=== PATIENT | female | born 1995 | race Caucasian/White ===

== ENCOUNTER 2019-08-27 19:02 | Emergency (ER) | payer BC, SELFPAY ==
[2019-08-27 19:05] VITALS: BP 115/69; PULSE 114; RESP 16; TEMP 38.6; O2SAT 99
--- NOTE | 2019-08-27 19:42 | W.ED.GENAD ---
Discharge Plan Disposition Patient Disposition: HOME Condition: Stable Discharge Details Chief Complaint: Fever Clinical Impression: Influenza Primary Care Provider: Hien,Local ED Provider: Amee Mack Home Meds and New Rx's Prescriptions: New oseltamivir [Tamiflu] 75 mg capsule 75 mg PO BID 5 Days Qty: 10 RF: 0 No Action multivitamin Tablet 1 tab PO DAILY RF: 0 calcium carbonate [Calcium 500] 500 mg calcium (1,250 mg) Tablet 500 mg PO DAILY RF: 0 cholecalciferol (vitamin D3) [Vitamin D3] 10 mcg (400 unit) Capsule PO DAILY RF: 0 ferrous sulfate [iron] 325 mg (65 mg iron) Tablet PO DAILY RF: 0 vitamin [id number]-[id number] acid 500-400 mcg Tablet 1 tab PO DAILY RF: 0 biotin 10,000 mcg Capsule 10,000 mcg PO DAILY RF: 0 Discharge Instructions Instructions: Influenza (ED) Additional Instructions: Drink plenty of fluids. Rest activities as tolerated. Use Tamiflu as prescribed as discussed. Continue your previously prescribed antibiotics. Be sure to replace your toothbrushes as well as lip cosmetics and Chapstick Use Motrin or Tylenol for fever control. Observe for any signs of difficulty breathing or dehydration as discussed. Recheck with your primary care doctor if not improving in the next 5 to 7 days. Return or go to your local emergency room for any worsening, concerns or alarming symptoms sooner if needed Stand Alone Forms: Work Release Discharge Data Discharge Date/Time-TO BE ENTERED AT DEPARTURE: 08/27/19 20:11 Medical Decision Making This is a 23-year-old patient who is quite pleasant presenting to the emergency room for complaints of onset of ill feeling. Patient reports she was recently diagnosed with strep throat 4 days ago for which she is on an antibiotic however in the last 24 hours had onset of nausea while she was in the car she is somewhat prone to being carsick however she did have persistent nausea throughout the day improved after taking Dramamine. Patient also reports onset of body ache which was quite widespread. Patient did go snowboarding yesterday and was unsure if body aches are attributed to snowboarding. Patient has since developed onset of a fever. Patient does report mild congestion and cough. Denies significant sore throat which has improved in the last 4 days since starting antibiotics. 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 Patient was personally exposed to her boyfriend whom she sees frequently who was positive for influenza 2 weeks ago. Patient concerned with the possibility of influenza in addition to a recent strep throat. Patient denies obvious difficulty breathing or shortness of breath or wheezing. On exam patient does have mild erythema of bilateral TMs, pharyngeal erythema, cervical lymphadenopathy. Breath sounds are clear. Given patient's recent strep infection and current antibiotic use I do not feel testing for strep is necessary. Patient has nothing to indicate peritonsillar abscess at this time or complications from strep. Given patient's presentation of nausea as well as widespread body ache and new onset of fever I am concerned with the possibility of influenza. Patient would prefer influenza testing at this time. I do not feel chest x-ray is necessary as patient's breath sounds are clear patient is not hypoxic nor tachypneic. Patient's influenza testing is negative. After discussion with the patient regarding possibility of false negative influenza patient's preference is to begin Tamiflu at this time given her exposures to flu recently and her symptoms. Patient declines need for prescriptions for nausea medications. Discussed patient's temperature. Patient would prefer Tylenol at this time as well as Tamiflu initial dose being provided now. Patient does not want a week for recheck of her temperature but will follow at home. Feels comfortable managing her fevers at home. Patient does appear well-hydrated. Hydration was discussed. The patient was stable and requested discharge. Prior to discharge, my usual and customary return precautions were reviewed with the patient - this included follow-up instructions and reasons to return to the Emergency Department if conditions worsens, does not improve as expected, or other new concerns arise. HPI General Date/Time Provider Initiated Documentation: 08/27/19 19:18. HPI Narrative: Is a 23-year-old patient presenting for complaints of fever. Patient reports onset of nausea while driving today, onset of widespread body ache. Patient does report she occasionally gets carsick and nausea began while in the car. Patient also reports achiness yet snowboarding all day yesterday unsure if achiness is attributed to snowboarding. Patient also reports a cough which is dry in nature. Patient reports mild nasal congestion. Denies sore throat and was recently 4 days ago diagnosed with strep and is currently on antibiotics. 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 Patient denies abdominal pain or diarrhea. Patient denies any difficulty breathing with shortness of breath or wheezing. Patient is a non-smoker. Patient reports not having an appetite today nor does she feel she drink enough fluids however does not report feeling overtly dehydrated. Is urinating normal amounts today. Patient denies any other concerns or complaints at this time. Patient has no significant medical history, takes no daily medications. Related Data Home Medications Medication Instructions Recorded Confirmed biotin 10,000 mcg PO DAILY 08/27/19 08/27/19 calcium carbonate [Calcium 500] 500 mg PO DAILY 08/27/19 08/27/19 cholecalciferol (vitamin D3) unit PO DAILY 08/27/19 [Vitamin D3] ferrous sulfate [iron] mg PO DAILY 08/27/19 multivitamin 1 tab PO DAILY 08/27/19 08/27/19 oseltamivir [Tamiflu] 75 mg PO BID 5 Days #10 cap 08/27/19 vitamin [id number]-ipnoh acid 1 tab PO DAILY 08/27/19 08/27/19 Previous Rx's Medication Instructions Recorded oseltamivir [Tamiflu] 75 mg PO BID 5 Days #10 cap 08/27/19 Allergies Allergy/AdvReac Type Severity Reaction Status Date / Time No Known Allergies Allergy Unverified 08/27/19 19:11 General Stated Complaint: Fever ELY: 3 Review of Systems All systems reviewed & are unremarkable except as noted in HPI and below Constitutional Constitutional: Reports chills, Reports fatigue, Reports fever(s), Reports headache(s) and Reports malaise ENT Ears, Nose, Mouth, and Throat: Denies otalgia, Reports headache(s), Reports nasal discharge, Denies sinus pain, Denies sinus pressure and Denies sore throat Cardiovascular Cardiovascular: Denies dyspnea and Denies dyspnea on exertion Respiratory Respiratory: Reports cough, Denies dyspnea, Denies dyspnea on exertion, Denies stridor and Denies wheezing Gastrointestinal Gastrointestinal: Denies abdominal pain, Denies diarrhea, Reports nausea and Denies vomiting Genitourinary Genitourinary: Denies hematuria and Denies dysuria Musculoskeletal Musculoskeletal: Reports myalgias Neurologic Neurologic: Reports headache(s) Endocrine Endocrine: Reports fatigue Allergic/Immunologic Allergic/Immunologic: Denies wheezing [facility] Social History Smoking/Tobacco Use Status: Former Tobacco Use Alcohol Intake: current Alcohol Intake frequency: other Drug use: Never Do you feel safe at home: Yes Do you feel safe in your relationship?: Yes Exam Narrative Exam Narrative: CONST: no acute distress. Well hydrated. Alert and oriented. HENMT: Head nomocephalic, normal to inspection. Atraumatic. Hearing grossly normal. Mild TM erythema bilaterally without associated bulging. Pharyngeal erythema present without exudate or tonsillar swelling. Nothing to indicate peritonsillar abscess. EYES: General normal appearance. Alignment normal. Eyelids normal. Conjunctiva normal. NECK: Normal visual inspection. FROM. Trachea midline. No Midline tenderness. Mild cervical lymphadenopathy present CHEST: Normal insepection of the chest. RESP: Normal respiratory effort. Speaking full sentences. No cough. No audible wheezing. No retractions. Breath sounds clear, full and equal bilaterally. No wheezing, rhonchi or rales CARDIO: No JVD. No murmur. Regular rate and rhythm GI: Bowel sounds present in all 4 quadrants, abdomen is soft and nontender. No peritoneal signs, rebound or guarding. SKIN: Normal. Dry. No rashes. NEURO: Alert and awake. Speech clear. PSYCH: Normal affect. Cooperative. Course Vital Signs Vital signs: Vital Signs Temperature 38.6 C H 08/27/19 19:05 Pulse 114 H 08/27/19 19:05 Respiratory Rate 16 08/27/19 19:05 Blood Pressure 115/69 08/27/19 19:05 Pulse Oximetry 99 08/27/19 19:05 Temperature 38.6 C H 08/27/19 19:05 Temperature Source Skin 08/27/19 19:05 Pulse 114 H 08/27/19 19:05 Respiratory Rate 16 08/27/19 19:05 Respiratory Effort 08/27/19 19:15 Blood Pressure 115/69 08/27/19 19:05 Blood Pressure Position Sitting 08/27/19 19:05 Pulse Oximetry 99 08/27/19 19:05 Oxygen Delivery Method Room Air 08/27/19 19:05 Oxygen Flow Rate 0 08/27/19 19:05 Pain Level 3 08/27/19 19:05 Comment 08/27/19 19:05 Lab/Test Results Lab/Test Results: 08/27/19 19:20 Nasopharynx Influenza Types A,B Antigen - Final
[2019-08-27 19:43] VITALS: TEMP 38.6
[2019-08-27] MEDS: Acetaminophen 500 MG TAB 1000 MG PO (19:43)
--- NOTE | 2019-08-27 19:53 | NUR.NOTE ---
pt tolerating water PO Nursing Note:
[2019-08-27 19:55] VITALS: PULSE 107; RESP 16; TEMP 39.2; O2SAT 100
[2019-08-27 19:59] VITALS: PULSE 107; RESP 16; TEMP 39.2; O2SAT 100
[2019-08-27] MEDS: Oseltamivir 75 MG CAP (19:59)
== END 2019-08-27 20:11 | disposition home or self-care (01) ==
PROVIDERS: Emergency Provider Physician Assistant
DX: J11.1 Influenza due to unidentified influenza virus with other respiratory manifestations (principal)
CPT/HCPCS: 87449; 99283